=== PATIENT | male | born 1985 | race Two or more races ===

== ENCOUNTER 2024-12-25 11:16 | Emergency (ER) | payer BC, OTHER ==
[~2024-12-25] VITALS: Ht 200.7 cm; Wt 98.0 kg
[2024-12-25 11:49] VITALS: BP 114/82; PULSE 92; RESP 18; TEMP 98.5; O2SAT 95
--- NOTE | 2024-12-25 11:57 | ED.PDOC ---
HPI Comments Did a 39-year-old male who comes in with a head laceration. He was putting up a metal fence post earlier today and the post fell and hit him on his head. There was no lots of consciousness he does complain of dizziness and he does have a bad headache.. Not any neck pain. Chief Complaint: Laceration Time Seen by MD: 11:55 Primary Care Provider: NONE Reviewed Notes: Nurses Notes, Medications, Allergies Allergies: Coded Allergies: Penicillins (Verified Allergy, Unknown, 12/25/24) Information Source: Patient Mode of Arrival: Ambulatory Complexity: Simple Laceration Length (cm): 4 Past Medical History Past Medical History (Other): Migraine headaches Chronic neck pain Surgical History: Tonsillectomy Social History Smoker: Other (Vapes) Alcohol: Rarely Drugs: Denies Drug Use Neurological: reports: dizziness, headache Integumetry: reports: laceration All Other Systems: Reviewed and Negative Physical Exam General Appearance: No Apparent Distress, Normal HEENT: Normal ENT Inspection, Pharynx Normal, TMs Normal Neck: Non-Tender, Normal Inspection, Supple Respiratory: Lungs Clear, Normal Breath Sounds Cardiovascular: Regular Rate/Rhythm Breast Exam: Deferred Gastrointestinal: Non Tender, Soft Genitalia: Deferred Pelvic: Deferred Rectal: Deferred Extremities: Normal inspection, Normal range of motion Neurologic: Alert, Normal Affect, Normal Mood Cerebellar Function: Normal Reflexes: NOT DONE Skin: Dry, Lacerations, Warm Lymphatic: No Adenopathy Was a procedure done? Was a procedure done?: Yes Sedation Sedation?: No Informed consent obtained: Yes Laceration Repair : Location Scalp Length 4 cm Anesthetic: Lidocaine Laceration Repair Prep: Betadine Laceration Repair Wound Comple: epidermis/dermis repair Laceration Repair: [place] Informed consent obtained: Yes Risks, benefits, and alternati: Yes Notes Wound was numbed with lidocaine 1% injected into the wound once anesthesia was obtained the wound was cleaned multiple times no foreign body felt. Four earlene were placed and good approximation patient tolerated procedure well. Differential diagnosis Generic Laceration: Abrasion/Contusion Differential Diagnosis: Closed Head Injury X-Ray, Labs, Meds, VS Vital Signs Date Time Temp Pulse Resp B/P (MAP) Pulse Ox O2 Delivery O2 Flow Rate FiO2 12/25/24 11:49 98.5 92 18 114/82 (93) 95 98.5 12/25/24 11:49 92 18 95 Room Air 12/25/24 11:41 98.5 92 18 114/82 (93) 95 98.5 X-Ray, Labs, Meds, VS Comment Patient seen and examined by me. Patient was working in the y[place] where metal pole fell on his head a CT scan was done to rule rule out a bleed this was negative. I then set the patient up for staple repair of the laceration. He tolerated that procedure well and is now going home with head injury instructions.. ORDERING PHYSICIAN: JOVANA ARIAS PROCEDURE(s): HWOCT - HEAD WITHOUT CONTRAST REASON: Hit by metal post ORDER NUMBER(s): [id number], ACCESSION NUMBER(s): [id number] CT HEAD WITHOUT CONTRAST INDICATION: Hit by metal post COMPARISON: None TECHNIQUE: CT of the head without intravenous contrast. RADIATION DOSE: CTDIvol: 56.76 mGy, DLP: 1023.34 mGy*cm FINDINGS: There is no evidence of acute intracranial hemorrhage, extra-axial collection, mass effect, midline shift, herniation or hydrocephalus. The ventricles, sulci and cisterns are age appropriate. The solares-white differentiation is intact. The visualized paranasal sinuses and mastoid air cells are clear. Minimal scalp swelling or scarring at the midline parietal vertex. IMPRESSION: No evidence of acute intracranial abnormalities. ATED BY: ALPHONSO SEYMOUR DO DICTATED DATE/TIME: 12/25/24 1227 Time of 1ST Reevaluation: 12:53 Reevaluation 1ST: Improved Patient Education/Counseling: Diagnosis, Treatment, Prognosis, Need For Follow Up Family Education/Counseling: No Family Present Departure 1 Departure Time of Disposition: 12:54 Impression: Primary Impression: Closed head injury Additional Impression: Occipital scalp laceration Disposition: 01 HOME / SELF CARE / HOMELESS Condition: Good Additional Instructions: Do not let any water touch your wound for 48 hours After 48 hours it is okay to let the water and shampoo fall on your hair in the shower but do not rub the earlene Please make sure you pat dry completely then apply topical antibiotic ointment [place] will come out in [address] scan was normal Please watch for signs of head injury which includes vomiting severe headache or acting abnormal if this occurs in the next 24 hours please return to the ER. Discharged With: Self Critical Care Note Critical Care Time?: No Stability Stability form required: JOVANA Woods Dec 25, 2024 11:57
--- NOTE | 2024-12-25 12:30 | DVH ---
CT HEAD WITHOUT CONTRAST INDICATION: Hit by metal post COMPARISON: None TECHNIQUE: CT of the head without intravenous contrast. RADIATION DOSE: CTDIvol: 56.76 mGy, DLP: 1023.34 mGy*cm FINDINGS: There is no evidence of acute intracranial hemorrhage, extra-axial collection, mass effect, midline s hift, herniation or hydrocephalus. The ventricles, sulci and cisterns are age appropriate. The solares -white differentiation is intact. The visualized paranasal sinuses and mastoid air cells are clear. Minimal scalp swelling or scarring at the midline parietal vertex. IMPRESSION: No evidence of acute intracranial abnormalities.
== END 2024-12-25 13:05 | disposition home or self-care (01) ==
LOC: ER 11:33
DX: S01.01XA Laceration without foreign body of scalp, initial encounter (principal); S09.90XA Unspecified injury of head, initial encounter; F17.290 Nicotine dependence, other tobacco product, uncomplicated; G43.909 Migraine, unspecified, not intractable, without status migrainosus; Z90.89 Acquired absence of other organs; Z88.0 Allergy status to penicillin; W20.8XXA Other cause of strike by thrown, projected or falling object, initial encounter; Y93.89 Activity, other specified; Y92.89 Other specified places as the place of occurrence of the external cause; Y99.8 Other external cause status
CPT/HCPCS: 12002; 70450; 99284; J2003